=== PATIENT | female | born 1980 | race Caucasian/White ===

== ENCOUNTER 2020-05-11 15:28 | Observation (INO) | payer OTHER ==
[2020-05-11] MEDS ORDERED: IOPAMIDOL CONTRAST (ORAL USE) VIAL PO PRN (16:12)
[2020-05-11] MEDS ORDERED: PANTOPRAZOLE 40 MG/10 ML VIAL IVP STA (16:13)
--- NOTE | 2020-05-11 16:25 | ED ---
General Adult HPI - General Chief complaint: Abdominal Pain Stated complaint: vomiting Time Seen by Provider: 05/11/20 16:01 Source: patient, RN notes reviewed, old records reviewed Mode of arrival: ambulatory Limitations: no limitations - History of Present Illness Initial comments: 40-year-old female presenting for evaluation of vomiting. Patient states she's been vomiting for the past 3 weeks but much with any oral intake. She denies abdominal pain. She has previous history of gastric bypass, gastric sleeve. She denies any previous consultations with the surgery which was over a year ago. She denies fever. She states she has some reflux type symptoms secondary to the persistent vomiting. She states she has been moving her bowels although his been somewhat irregular. She was evaluated by her surgeon within the past several weeks and had an outpatient CT. She states she has an appointment for a evaluation by general surgeon Dr. Aguilar. - Related Data Home Medications Medication Instructions Recorded Confirmed Levothyroxine Sodium [Synthroid] 137 mcg PO DAILY 05/11/20 05/11/20 Lisinopril [Prinivil] 10 mg PO HS 05/11/20 05/11/20 Multivitamins, Thera [Multivitamin 1 tab PO DAILY 05/11/20 05/11/20 (formulary)] Allergies Allergy/AdvReac Type Severity Reaction Status Date / Time gentamicin AdvReac Swelling Verified 05/11/20 16:40 Review of Systems ROS Statement: Those systems with pertinent positive or pertinent negative responses have been documented in the HPI. ROS Other: All systems not noted in ROS Statement are negative. Past Medical History Past Medical History: Cancer Additional Past Medical History / Comment(s): thyroid ca History of Any Multi-Drug Resistant Organisms: None Reported Past Surgical History: Adenoidectomy, Section, Cholecystectomy, Tonsillectomy Additional Past Surgical History / Comment(s): thyroidectomy, gastric sleeve Past Psychological History: No Psychological Hx Reported Smoking Status: Never smoker Past Alcohol Use History: None Reported Past Drug Use History: None Reported General Exam Limitations: no limitations General appearance: alert, in no apparent distress Head exam: Present: atraumatic, normocephalic Eye exam: Present: normal appearance, PERRL ENT exam: Present: mucous membranes dry. Absent: normal oropharynx (Erythema) Neck exam: Present: normal inspection, tenderness Respiratory exam: Present: normal lung sounds bilaterally. Absent: respiratory distress, wheezes Cardiovascular Exam: Present: regular rate, normal rhythm GI/Abdominal exam: Present: soft. Absent: distended, tenderness, guarding, rebound Extremities exam: Present: normal inspection, normal capillary refill. Absent: pedal edema Neurological exam: Present: alert, oriented X3, CN II-XII intact. Absent: motor sensory deficit Psychiatric exam: Present: normal affect, normal mood Skin exam: Present: warm, dry, intact. Absent: cyanosis, diaphoretic Course Vital Signs 05/11/20 15:54 Temperature 97 F L Pulse Rate 81 Respiratory 18 Rate Blood Pressure 163/107 O2 Sat by Pulse 100 Oximetry Medical Decision Making - Medical Decision Making 40 yo female presenting with nausea vomiting. Status post bariatric surgery approximately a year and half ago. Patient well-appearing, abdomen is soft nontender nondistended. CT with oral contrast is obtained, negative for obstruction, no acute findings per patient has normal CBC, CMP showing h yperglycemia with no other acute findings. I did discuss case with Dr. Aguilar who will admit the patient for symptomatically control. Intractable nausea and vomiting. She's placed on IV fluids, clear liquid diet, symptomatic control. - Lab Data Result diagrams: 05/11/20 16:58 05/11/20 16:58 Lab Results 05/11/20 05/11/20 05/11/20 Range/Units 16:58 16:58 16:58 WBC 5.5 (3.8-10.6) k/uL RBC 4.44 (3.80-5.40) m/uL Hgb 13.7 (11.4-16.0) gm/dL Hct 40.4 (34.0-46.0) % MCV 91.1 (80.0-100.0) fL MCH 30.8 (25.0-35.0) pg MCHC 33.8 (31.0-37.0) g/dL RDW 12.7 (11.5-15.5) % Plt Count 220 (150-450) k/uL MPV 8.1 Neutrophils % 63 % Lymphocytes % 28 % Monocytes % 5 % Eosinophils % 3 % Basophils % 1 % Neutrophils # 3.5 (1.3-7.7) k/uL Lymphocytes # 1.5 (1.0-4.8) k/uL Monocytes # 0.3 (0-1.0) k/uL Eosinophils # 0.1 (0-0.7) k/uL Basophils # 0.1 (0-0.2) k/uL PT 10.5 (9.0-12.0) sec INR 1.0 (<1.2) APTT 23.3 (22.0-30.0) sec Sodium (137-145) mmol/L Potassium (3.5-5.1) mmol/L Chloride (98-107) mmol/L Carbon Dioxide (22-30) mmol/L Anion Gap mmol/L BUN (7-17) mg/dL Creatinine (0.52-1.04) mg/dL Est GFR (CKD-EPI)AfAm (>60 ml/min/1.73 sqM) Est GFR (CKD-EPI)NonAf (>60 ml/min/1.73 sqM) Glucose (74-99) mg/dL Plasma Lactic Acid Vahid (0.7-2.0) mmol/L Calcium (8.4-10.2) mg/dL Total Bilirubin (0.2-1.3) mg/dL AST (14-36) U/L ALT (4-34) U/L Alkaline Phosphatase (38-126) U/L Total Protein (6.3-8.2) g/dL Albumin (3.5-5.0) g/dL Amylase (30-110) U/L Lipase (23-300) U/L Urine Color Yellow Urine Appearance Clear (Clear) Urine pH 5.5 (5.0-8.0) Ur Specific Lyons 1.020 (1.001-1.035) Urine Protein Negative (Negative) Urine Glucose (UA) 2+ H (Negative) Urine Ketones Negative (Negative) Urine Blood Moderate H (Negative) Urine Nitrite Negative (Negative) Urine Bilirubin Negative (Negative) Urine Urobilinogen <2.0 (<2.0) mg/dL Ur Leukocyte Esterase Negative (Negative) Urine RBC 9 H (0-5) /hpf Urine WBC 1 (0-5) /hpf Ur Squamous Epith Cells 1 (0-4) /hpf 05/11/20 05/11/20 Range/Units 16:58 16:58 WBC (3.8-10.6) k/uL RBC (3.80-5.40) m/uL Hgb (11.4-16.0) gm/dL Hct (34.0-46.0) % MCV (80.0-100.0) fL MCH (25.0-35.0) pg MCHC (31.0-37.0) g/dL RDW (11.5-15.5) % Plt Count (150-450) k/uL MPV Neutrophils % % Lymphocytes % % Monocytes % % Eosinophils % % Basophils % % Neutrophils # (1.3-7.7) k/uL Lymphocytes # (1.0-4.8) k/uL Monocytes # (0-1.0) k/uL Eosinophils # (0-0.7) k/uL Basophils # (0-0.2) k/uL PT (9.0-12.0) sec INR (<1.2) APTT (22.0-30.0) sec Sodium 138 (137-145) mmol/L Potassium 3.9 (3.5-5.1) mmol/L Chloride 102 (98-107) mmol/L Carbon Dioxide 26 (22-30) mmol/L Anion Gap 10 mmol/L BUN 16 (7-17) mg/dL Creatinine 0.83 (0.52-1.04) mg/dL Est GFR (CKD-EPI)AfAm >90 (>60 ml/min/1.73 sqM) Est GFR (CKD-EPI)NonAf 88 (>60 ml/min/1.73 sqM) Glucose 256 H (74-99) mg/dL Plasma Lactic Acid Vahid 1.8 (0.7-2.0) mmol/L Calcium 8.9 (8.4-10.2) mg/dL Total Bilirubin 1.1 (0.2-1.3) mg/dL AST 25 (14-36) U/L ALT 21 (4-34) U/L Alkaline Phosphatase 69 (38-126) U/L Total Protein 7.3 (6.3-8.2) g/dL Albumin 4.1 (3.5-5.0) g/dL Amylase 45 (30-110) U/L Lipase 224 (23-300) U/L Urine Color Urine Appearance (Clear) Urine pH (5.0-8.0) Ur Specific Lyons (1.001-1.035) Urine Protein (Negative) Urine Glucose (UA) (Negative) Urine Ketones (Negative) Urine Blood (Negative) Urine Nitrite (Negative) Urine Bilirubin (Negative) Urine Urobilinogen (<2.0) mg/dL Ur Leukocyte Esterase (Negative) Urine RBC (0-5) /hpf Urine WBC (0-5) /hpf Ur Squamous Epith Cells (0-4) /hpf Disposition Clinical Impression: Intractable nausea and vomiting Disposition: ADMITTED IP TO THIS HOSP Condition: Stable Is patient prescribed a controlled substance at d/c from ED?: No Referrals: Nino Castillo MD [Primary Care Provider] - 1-2 days Decision to Admit Reason: Admit from EC Decision Date: 05/11/20 Decision Time: 18:44
[2020-05-11 17:15] LABS: ALT 21 U/L (4-34); AST 25 U/L (14-36); African American GFR (CKD) >90 (>60 ml/min/1.73 sqM); Albumin 4.1 g/dL (3.5-5.0); Alkaline Phosphatase 69 U/L (38-126); Amylase 45 U/L (30-110); Anion Gap 10 mmol/L; Blood Urea Nitrogen 16 mg/dL (7-17); Calcium 8.9 mg/dL (8.4-10.2); Carbon Dioxide 26 mmol/L (22-30); Chloride 102 mmol/L (98-107); Glucose 256 mg/dL (74-99); Lipase 224 U/L (23-300); Non-African American GFR(CKD) 88 (>60 ml/min/1.73 sqM); Potassium 3.9 mmol/L (3.5-5.1); Sodium 138 mmol/L (137-145); Total Bilirubin 1.1 mg/dL (0.2-1.3); Total Protein 7.3 g/dL (6.3-8.2)
[2020-05-11 17:17] LABS: Appearance,Urine Clear (Clear); Basophils # (A) 0.1 k/uL (0-0.2); Basophils % (A) 1 %; Bilirubin,Urine Negative (Negative); Blood,Urine Moderate (Negative); Color,Urine Yellow; Eosinophils # (A) 0.1 k/uL (0-0.7); Eosinophils % (A) 3 %; Glucose,Urine (UA) 2+ (Negative); HCT 40.4 % (34.0-46.0); HGB 13.7 gm/dL (11.4-16.0); Ketones,Urine Negative (Negative); Leukocyte Esterase,Urine Negative (Negative); Lymphocytes # (A) 1.5 k/uL (1.0-4.8); Lymphocytes % (A) 28 %; MCH 30.8 pg (25.0-35.0); MCHC 33.8 g/dL (31.0-37.0); MCV 91.1 fL (80.0-100.0); Mean Platelet Volume 8.1; Monocytes # (A) 0.3 k/uL (0-1.0); Monocytes % (A) 5 %; Neutrophils # (A) 3.5 k/uL (1.3-7.7); Neutrophils % (A) 63 %; Nitrite,Urine Negative (Negative); PH, Urine 5.5 (5.0-8.0); Platelet Count 220 k/uL (150-450); Protein,Urine Negative (Negative); RBC 4.44 m/uL (3.80-5.40); RBC,Urine 9 /hpf (0-5); RDW 12.7 % (11.5-15.5); Squamous Epithelial Cell,Urine 1 /hpf (0-4); Urobilinogen,Urine <2.0 mg/dL (<2.0); WBC 5.5 k/uL (3.8-10.6); WBC,Urine 1 /hpf (0-5)
[2020-05-11 17:26] LABS: Partial Thromboplastin Time 23.3 sec (22.0-30.0); Prothrombin Time 10.5 sec (9.0-12.0)
--- NOTE | 2020-05-11 17:47 | CT ---
EXAMINATION TYPE: CT abdomen pelvis w con DATE OF EXAM: 05/11/2020 COMPARISON: None available. HISTORY: Vomiting s/p gastric sleeve 04-16-20 CT DLP: 2208.3 mGycm Automated exposure control for dose reduction was used. TECHNIQUE: Helical acquisition of images was performed from the lung bases through the pelvis. CONTRAST: Performed with Oral Contrast and with IV Contrast, patient injected with 100 mL of Isovue 300. FINDINGS: LUNG BASES: No significant abnormality is appreciated. LIVER/GB: No significant abnormality is appreciated. Hepatic steatosis and cholecystectomy noted. PANCREAS: No significant abnormality is seen. SPLEEN: No significant abnormality is seen. ADRENALS: No significant abnormality is seen. KIDNEYS: No significant abnormality is seen. FREE AIR: No free air is visualized. RETROPERITONEAL ADENOPATHY: None visualized REPRODUCTIVE ORGANS: No significant abnormality is seen URINARY BLADDER: Moderate degenerative bladder wall thickening. PELVIC ADENOPATHY: None visualized. OSSEOUS STRUCTURES: No acute abnormality is seen. Moderate to severe L5-S1 spondylosis. BOWEL: Gastric sleeve is seen. No bowel obstruction, free air or fluid. No acute appendicitis. Small fat-containing periumbilical hernia. OTHER: None. IMPRESSION: NO ACUTE ABNORMALITY. GASTRIC SLEEVE. Incidental findings as above.
[2020-05-11] MEDS ORDERED: MORPHINE SULFATE 4 MG/ML SYRINGE IV PRN (18:40)
[2020-05-11] MEDS ORDERED: NALOXONE 0.4 MG/ML 1 ML VIAL IV PRN (18:40)
[2020-05-11] MEDS: SODIUM CHLORIDE 0.9% 1,000 ML IV SCH (19:34)
[2020-05-11] MEDS: ONDANSETRON 4 MG/2 ML VIAL IVP PRN (19:37)
[2020-05-12] MEDS: SODIUM CHLORIDE 0.9% 1,000 ML IV SCH ×3 (07:00→23:03)
[2020-05-12] MEDS: PANTOPRAZOLE 40 MG/10 ML VIAL IV SCH (11:14)
[2020-05-12] MEDS: ONDANSETRON 4 MG/2 ML VIAL IVP PRN (11:15)
[2020-05-12] MEDS: INSULIN ASPART (NovoLOG) 100 UNIT/ML VIAL SQ SCH ×3 (11:42→20:27)
[2020-05-12] MEDS ORDERED: PROPOFOL 10 MG/ML 20 ML VIAL IV ONE (11:43)
[2020-05-12] MEDS ORDERED: LIDOCAINE 1% INJ 10MG/ML (20 ML MDV) ONE (11:43)
[2020-05-12] MEDS ORDERED: IV FLUID CONTINUATION 1,000 ML IV ONE (11:44)
--- NOTE | 2020-05-12 12:01 | P.GSHP ---
History of Present Illness H&P Date: 05/12/20 CHIEF COMPLAINT: Intractable nausea and vomiting. HISTORY OF PRESENT ILLNESS: The patient is a 40 year old female who presents with intractable nausea and vomiting for one month. She had a sleeve gastrectomy August 2018. She is less than 2 years out. Her bariatric surgeon is in [facility]. She reports initially being 330 pounds, BMI 62.5. Today she comes in 243 pounds, BMI 46.1. She has lost 87 pounds in list in 2 years. In the past 2+ weeks, she has been a liquid diet per recommendation of her bariatric surgeon. She reports she is unable to tolerate liquids. She reports epigastric discomfort which is moderate to severe. She reports drinking liquids and vomiting within 30 minutes. She presented with worsening symptoms to the emergency room. She is admitted for intractable nausea and vomiting, dehydration, epigastric abdominal pain with history of sleeve gastrectomy. PAST MEDICAL HISTORY: See list and reviewed PAST SURGICAL HISTORY: See list and reviewed MEDICATIONS: See list and reviewed ALLERGIES: See list and reviewed SOCIAL HISTORY: See list and reviewed FAMILY HISTORY: See list and reviewed REVIEW OF ORGAN SYSTEMS: CONSTITUTIONAL: No fevers or chills. Has recent weight loss over 80 pounds intentional EYES: Denies any trouble with vision. No glasses. HEENT: No difficulties with hearing. No nosebleeds. Has difficulty swallowing. RESPIRATORY: Denies pneumonia. Denies any troubles with breathing or dyspnea on exertion. CARDIOVASCULAR: Denies any chest pain, palpitations, or recent heart attacks. GASTROINTESTINAL: Denies fatty food intolerance. Denies change in bowel habits and gas bloat. Has gastroesophageal reflux disease. GENITOURINARY: Denies any blood in urine or increased urinary frequency. NEUROLOGICAL: Denies any numbness or tingling along the distal extremities. No seizure disorders or headaches. MUSCULOSKELETAL: Denies any back pain, stiffness or joint arthritis. SKIN: No current skin cancer. No rash. PSYCHIATRIC: Denies current depression or suicidal thoughts. ENDOCRINE: History of thyroid cancer. Denies any blood sugar glucose intolerance. HEME/LYMPHATIC: Denies any lumps and bumps around the neck. No recent deep venous thrombosis. ALLERGY/IMMUNOLOGY: No immunoglobulin therapy. No immune deficiencies. BREAST: Denies current breast lumps, pain or nipple discharge. PHYSICAL EXAM: VITALS: Reviewed CONSTITUTIONAL: Well developed and in no acute distress. EYES: Conjuctivae without sclera icterus. Extraocular movements grossly intact. HEAD, EARS, NOSE, THROAT: Moist buccal mucosa. Head is atraumatic, normocephalic. Hears conversational speech. No nasal drainage. NECK: No JV distention. RESPIRATORY: Non-labored respirations and equal bilateral excursions. No gross wheezes. CARDIOVASCULAR: Regular rate and rhythm. Palpable 2+ radial pulses. ABDOMEN: Soft. Non-tender. Nondistended. LYMPH: No neck lymphadenopathy. No axillary lymphadenopathy. MUSCULOSKELETAL: Range of motion bilateral upper extremities within normal limits. Nail and fingers with good capillary refill. SKIN: Warm and well perfused with good skin turgor. Hirsutism along jaw line. NEUROLOGIC: Cranial nerves II through XII grossly intact. Sensation upper and extremities intact. No focal or lateralizing signs. PSYCH: Appropriate affect. Alert and oriented to person, place and time. Disp lays appropriate insight. CLINCAL LABS: Reviewed. WBC normal. IMAGING: Independently reviewed CT of the abdomen and pelvis reviewed by me demonstrates moderate size gastric sleeve along the base at the antrum. Moderate stool burden throughout. No signs of small bowel obstruction. Findings consistent with umbilical hernia. This is my independent interpretation. RADIOLOGY: Report reviewed of CT of the abdomen and pelvis additionally report moderate spondylosis of L5-S1 and thickening of the bladder. ASSESSMENT: 1. Intractable nausea and vomiting 2. Status post sleeve gastrectomy with complications 3. Morbid obesity due to excess calories, BMI 46.1 4. Epigastric abdominal pain PLAN: 1. Recommend upper endoscopy. Benefits and risks described. 2. Low magneisum and low thiamine may also cause intractable nausea. Will obtain and treat. 3. IV fluid hydration for intractable nausea and vomiting. Past Medical History Past Medical History: Cancer Additional Past Medical History / Comment(s): thyroid ca History of Any Multi-Drug Resistant Organisms: None Reported Past Surgical History: Adenoidectomy, Section, Cholecystectomy, Tonsillectomy Additional Past Surgical History / Comment(s): thyroidectomy, gastric sleeve [email or web address]. Past Psychological History: No Psychological Hx Reported Smoking Status: Never smoker Past Alcohol Use History: None Reported Past Drug Use History: None Reported - Past Family History Sister(s) History Unknown: Yes Additional Family Medical History / Comment(s): gastic sleeve Medications and Allergies Home Medications Medication Instructions Recorded Confirmed Type Levothyroxine Sodium [Synthroid] 137 mcg PO DAILY 05/11/20 05/11/20 History Lisinopril [Prinivil] 10 mg PO HS 05/11/20 05/11/20 History Multivitamins, Thera [Multivitamin 1 tab PO DAILY 05/11/20 05/11/20 History (formulary)] Omeprazole [PriLOSEC] 40 mg PO DAILY #14 cap 05/13/20 Rx Allergies Allergy/AdvReac Type Severity Reaction Status Date / Time gentamicin AdvReac Swelling Verified 05/11/20 16:40 Surgical - Exam Vital Signs Temp Pulse Resp BP Pulse Ox 97 F L 81 18 163/107 100 05/11/20 15:54 05/11/20 15:54 05/11/20 15:54 05/11/20 15:54 05/11/20 15:54 Results - Labs 05/11/20 16:58 05/13/20 06:14 Abnormal Lab Results - Last 24 Hours (Table) 05/11/20 05/11/20 Range/Units 16:58 16:58 Glucose 256 H (74-99) mg/dL Urine Glucose (UA) 2+ H (Negative) Urine Blood Moderate H (Negative) Urine RBC 9 H (0-5) /hpf Diabetes panel 05/11/20 Range/Units 16:58 Sodium 138 (137-145) mmol/L Potassium 3.9 (3.5-5.1) mmol/L Chloride 102 (98-107) mmol/L Carbon Dioxide 26 (22-30) mmol/L BUN 16 (7-17) mg/dL Creatinine 0.83 (0.52-1.04) mg/dL Glucose 256 H (74-99) mg/dL Calcium 8.9 (8.4-10.2) mg/dL AST 25 (14-36) U/L ALT 21 (4-34) U/L Alkaline Phosphatase 69 (38-126) U/L Total Protein 7.3 (6.3-8.2) g/dL Albumin 4.1 (3.5-5.0) g/dL Calcium panel 05/11/20 Range/Units 16:58 Calcium 8.9 (8.4-10.2) mg/dL Albumin 4.1 (3.5-5.0) g/dL Pituitary panel 05/11/20 Range/Units 16:58 Sodium 138 (137-145) mmol/L Potassium 3.9 (3.5-5.1) mmol/L Chloride 102 (98-107) mmol/L Carbon Dioxide 26 (22-30) mmol/L BUN 16 (7-17) mg/dL Creatinine 0.83 (0.52-1.04) mg/dL Glucose 256 H (74-99) mg/dL Calcium 8.9 (8.4-10.2) mg/dL Adrenal panel 05/11/20 Range/Units 16:58 Sodium 138 (137-145) mmol/L Potassium 3.9 (3.5-5.1) mmol/L Chloride 102 (98-107) mmol/L Carbon Dioxide 26 (22-30) mmol/L BUN 16 (7-17) mg/dL Creatinine 0.83 (0.52-1.04) mg/dL Glucose 256 H (74-99) mg/dL Calcium 8.9 (8.4-10.2) mg/dL Total Bilirubin 1.1 (0.2-1.3) mg/dL AST 25 (14-36) U/L ALT 21 (4-34) U/L Alkaline Phosphatase 69 (38-126) U/L Total Protein 7.3 (6.3-8.2) g/dL Albumin 4.1 (3.5-5.0) g/dL
--- NOTE | 2020-05-12 12:04 | P.PCN ---
Date of Procedure: 05/12/20 Description of Procedure: PREOPERATIVE DIAGNOSIS: Intractable nausea and vomiting Dysphagia to liquids Status post sleeve gastrectomy Gastroesophageal reflux disease Epigastric abdominal pain POSTOPERATIVE DIAGNOSIS: Hypertensive GE junction Intractable nausea and vomiting Dysphagia to liquids Status post sleeve gastrectomy Gastroesophageal reflux disease Epigastric abdominal pain OPERATION: Esophagogastroduodenoscopy SURGEON: Dayana Aguilar MD ANESTHESIA: MAC. INDICATIONS: The patient is a 40-year-old female who presents with a history of sleeve gastrectomy with abdominal pain and intractable nausea vomiting. Benefits and risks of the procedure were described. Informed consent was obtained. DESCRIPTION: The patient was brought into the endoscopy suite and laid in the left lateral decubitus position. An Olympus gastroscope was passed along the posterior oropharynx down to the distal esophagus where the squamocolumnar junction was at 32 centimeters from the incisors remarkable for chronic erosive esophagitis, LA grade A without ulceration. The stomach was entered with hypertensive GE junction identified.. The sleeve reservoir was within normal limits. Retroflexion occurred within the antrum without gastric ulcers. Chronic gastritis albeit mild was found along the antrum. The first through third portion of the duodenum was examined and unremarkable. The scope again had easily retroflexed along the antrum. The stomach was desufflated. The patient tolerated the procedure well. FINDINGS: No acute ulceration found along her sleeve. No corkscrewing sleeve gastrectomy. Squamocolumnar junction at 32 cm from the incisors. Diaphragmatic hiatus at 33 cm. Hypertensive GE junction Hypertensive pylori LA grade A erosive esophagitis. No active duodenitis. Chronic gastritis RECOMMENDATIONS: Upper endoscopy as needed. Recommend esophagram Also recommend manometry for features of hypertensive GE junction
--- NOTE | 2020-05-12 13:56 | P.PN ---
Subjective Progress Note Date: 05/12/20 CHIEF COMPLAINT: Intractable nausea and vomiting. HISTORY OF PRESENT ILLNESS: The patient is a 40 year old female who presented with intractable nausea and vomiting for one month. She has a sleeve nighat rectomy. She completed an upper endoscopy without findings of gastric or duodenal ulcers. A barium swallow was obtained for functional abnormalities of her swallow. REVIEW OF ORGAN SYSTEMS: No fevers or chills. No shortness of breath. PHYSICAL EXAM: VITALS: Reviewed CONSTITUTIONAL: Well developed and in no acute distress. EYES: Conjuctivae without sclera icterus. Extraocular movements grossly intact. HEAD, EARS, NOSE, THROAT: Moist buccal mucosa. Head is atraumatic, normocephalic. Hears conversational speech. No nasal drainage. NECK: No JV distention. RESPIRATORY: Non-labored respirations and equal bilateral excursions. No gross wheezes. CARDIOVASCULAR: Palpable 2+ radial pulses. ABDOMEN: Soft. Non-tender. Nondistended. LYMPH: No neck lymphadenopathy. No axillary lymphadenopathy. MUSCULOSKELETAL: Nail and fingers with good capillary refill. SKIN: Warm and well perfused with good skin turgor. Hirsutism along jaw line. NEUROLOGIC: Cranial nerves II through XII grossly intact. No focal or lateralizing signs. PSYCH: Appropriate affect. Alert and oriented to person, place and time. Displays appropriate insight. LABS: Magnesium less than 2.0, low IMAGING: I was present for her esophagram with the radiologist. Mild delay at pylorus noted in supine position. Sleeve empties after laying down. This is my independent interpration. ASSESSMENT: 1. Intractable nausea and vomiting 2. Status post sleeve gastrectomy with complications 3. Morbid obesity due to excess calories, BMI 46.1 4. Epigastric abdominal pain 5. Delayed gastric emptying 6. Hypomagnesia PLAN: 1. For her delayed gastric emptying, will try reglan for motility 2. Anti-emetics including decadron scheduled. 3. Bariatric full liquid diet in the interim. 4. Correction of low magnesium to serum 2.0. Objective - Vital Signs Vital signs: Vital Signs Temp 97.4 F L 05/12/20 13:31 Pulse 68 05/12/20 13:31 Resp 21 05/12/20 13:31 BP 141/90 05/12/20 13:31 Pulse Ox 100 05/12/20 13:31 Intake & Output 05/11/20 05/12/20 05/12/20 18:59 06:59 18:59 Intake Total 200 Balance 200 Weight 110.677 kg 110.677 kg Intake: IV 200 - Labs CBC & Chem 7: 05/11/20 16:58 05/13/20 06:14 Labs: Abnormal Lab Results - Last 24 Hours (Table) 05/11/20 05/11/20 Range/Units 16:58 16:58 Glucose 256 H (74-99) mg/dL Urine Glucose (UA) 2+ H (Negative) Urine Blood Moderate H (Negative) Urine RBC 9 H (0-5) /hpf Assessment and Plan (1) Body mass index [BMI] 45.0-49.9, adult Status: Acute Code(s): Z68.42 - BODY MASS INDEX [BMI] 45.0-49.9, ADULT SNOMED Code(s): 442121966 (2) Dysphagia Status: Acute Code(s): R13.10 - DYSPHAGIA, UNSPECIFIED SNOMED Code(s): 99457718 (3) Hypomagnesemia Status: Acute Code(s): E83.42 - HYPOMAGNESEMIA SNOMED Code(s): 466706214 (4) Intractable nausea and vomiting Status: Acute Code(s): R11.2 - NAUSEA WITH VOMITING, UNSPECIFIED SNOMED Code(s): 783401885 (5) Morbid obesity due to excess calories Status: Acute Code(s): E66.01 - MORBID (SEVERE) OBESITY DUE TO EXCESS CALORIES SNOMED Code(s): 783448974 (6) Status post laparoscopic sleeve gastrectomy Status: Acute Code(s): Z98.84 - BARIATRIC SURGERY STATUS SNOMED Code(s): 411291228030252
[2020-05-12] MEDS ORDERED: DEXAMETHASONE SOD PHOSPHATE 10 MG/ML 1 ML VIAL IV PRN (13:57)
--- NOTE | 2020-05-12 14:09 | FL ---
EXAMINATION TYPE: FL UGI w esophagus DATE OF EXAM: 05/12/2020 COMPARISON: None HISTORY: Dysphasia TECHNIQUE: Single view contrast technique FINDINGS: Esophagus dilates to normal caliber has normal contour to the gastroesophageal junction. Ga stroesophageal junction opens to normal caliber. Small sliding type hiatal hernia is present on real- time observation. Gastric sleeve is patent. There is some hesitancy entering the proximal duodenum. Contrast enters the duodenum and supine views. Referring surgeon was present for the procedure. IMPRESSION: 1. Small hiatal hernia. 2. No stenosis or obstruction
[2020-05-12] MEDS: DEXAMETHASONE SOD PHOSPHATE 4 MG/ML 1 ML VIAL IV SCH ×3 (14:52→23:02)
[2020-05-12] MEDS: MAGNESIUM SULFATE-D5W PMX 1 GM in DEXTROSE/WATER 1 100ML.BAG IVPB SCH ×4 (14:53→18:35)
[2020-05-12] MEDS: METOCLOPRAMIDE 5 MG/ML 2 ML VIAL IVP SCH ×2 (14:53→20:27)
[2020-05-12 20:17] LABS: Glucose,Whole Blood 259 mg/dL (75-99)
[2020-05-13] MEDS: METOCLOPRAMIDE 5 MG/ML 2 ML VIAL IVP SCH ×3 (01:20→14:57)
[2020-05-13] MEDS: DEXAMETHASONE SOD PHOSPHATE 4 MG/ML 1 ML VIAL IV SCH ×2 (05:15→12:38)
[2020-05-13 06:58] LABS: Glucose,Whole Blood 235 mg/dL (75-99)
[2020-05-13 07:32] VITALS: BP 122/78
--- NOTE | 2020-05-13 08:26 | P.PN ---
Subjective Progress Note Date: 05/13/20 CHIEF COMPLAINT: Intractable nausea and vomiting. HISTORY OF PRESENT ILLNESS: The patient is a 40 year old female who presented with intractable nausea and vomiting and is status post sleeve gastrectomy. She completed upper endoscopy and barium swallow. She reports persistent vomiting unchanged from yesterday. Dynamic esophagram reviewed demonstrating mild gastric outlet obstruction with some improvement upon laying down. Patient clinically reports no new change. She reports trouble swallowing. REVIEW OF ORGAN SYSTEMS: No fevers or chills. No shortness of breath. PHYSICAL EXAM: VITALS: Reviewed CONSTITUTIONAL: Well developed and in no acute distress. EYES: Conjuctivae without sclera icterus. Extraocular movements grossly intact. HEAD, EARS, NOSE, THROAT: Moist buccal mucosa. Head is atraumatic, normocephalic. Hears conversational speech. No nasal drainage. NECK: No JV distention. RESPIRATORY: Non-labored respirations and equal bilateral excursions. No gross wheezes. CARDIOVASCULAR: Palpable 2+ radial pulses. ABDOMEN: Soft. Non-tender. Nondistended. MUSCULOSKELETAL: Nail and fingers with good capillary refill. SKIN: Warm and well perfused with good skin turgor. Hirsutism along jaw line. NEUROLOGIC: Cranial nerves II through XII grossly intact. No focal or later alizing signs. PSYCH: Appropriate affect. Alert and oriented to person, place and time. Displays appropriate insight. LABS: Reviewed magnesium over 2.0 ASSESSMENT: 1. Intractable nausea and vomiting 2. Status post sleeve gastrectomy with complications 3. Morbid obesity due to excess calories, BMI 46.1 4. Epigastric abdominal pain 5. Delayed gastric emptying 6. Hypomagnesia 7. Dysphagia PLAN: 1. She has persistent symptoms despite conservative measures of medications, dietary adjustment and diagnostic studies. 2. Recommend upper endoscopy with dilation of the pylorus to address delayed gastric emptying from gastric outlet obstruction. Benefits and risks described with patient agreed. She is elevated risk for perioperative complications in setting of previous sleeve gastrectomy and morbid obesity. Objective - Vital Signs Vital signs: Vital Signs Temp 97.4 F L 05/13/20 07:31 Pulse 74 05/13/20 07:31 Resp 16 05/13/20 07:31 BP 122/78 05/13/20 07:31 Pulse Ox 98 05/13/20 07:31 Intake & Output 05/12/20 05/13/20 05/13/20 18:59 06:59 18:59 Intake Total 200 300 Balance 200 300 Intake: IV 200 Oral 300 Other: Voiding Method Toilet # Voids 1 - Labs CBC & Chem 7: 05/11/20 16:58 05/13/20 06:14 Labs: Abnormal Lab Results - Last 24 Hours (Table) 05/12/20 05/13/20 Range/Units 20:13 06:51 POC Glucose (mg/dL) 259 H 235 H (75-99) mg/dL Assessment and Plan (1) Body mass index [BMI] 45.0-49.9, adult Status: Acute Code(s): Z68.42 - BODY MASS INDEX [BMI] 45.0-49.9, ADULT SNOMED Code(s): 381154796 (2) Dysphagia Status: Acute Code(s): R13.10 - DYSPHAGIA, UNSPECIFIED SNOMED Code(s): 68902605 (3) Gastric outlet obstruction Status: Acute Code(s): K31.1 - ADULT HYPERTROPHIC PYLORIC STENOSIS SNOMED Code(s): 068376257 (4) Intractable nausea and vomiting Status: Acute Code(s): R11.2 - NAUSEA WITH VOMITING, UNSPECIFIED SNOMED Code(s): 132032762 (5) Morbid obesity due to excess calories Status: Acute Code(s): E66.01 - MORBID (SEVERE) OBESITY DUE TO EXCESS CALORIES SNOMED Code(s): 597538973 (6) Status post laparoscopic sleeve gastrectomy Status: Acute Code(s): Z98.84 - BARIATRIC SURGERY STATUS SNOMED Code(s): 274738153600977
[2020-05-13] MEDS: INSULIN ASPART (NovoLOG) 100 UNIT/ML VIAL SQ SCH ×2 (09:54→12:38)
[2020-05-13] MEDS: PANTOPRAZOLE 40 MG/10 ML VIAL IV SCH (09:55)
[2020-05-13 11:07] LABS: African American GFR (CKD) 105.4 (60.0-200.0); Anion Gap 11.4 mmol/L (4.00-12.00); BUN/Creat Ratio 17.5 Ratio (12.00-20.00); Carbon Dioxide 22.6 mmol/L (21.6-31.8); Magnesium 2.1 mg/dL (1.5-2.4); Non-African American GFR(CKD) 90.9 (60.0-200.0); Potassium 4.4 mmol/L (3.5-5.5)
[2020-05-13 11:51] LABS: Glucose,Whole Blood 194 mg/dL (75-99)
[2020-05-13] MEDS: SODIUM CHLORIDE 0.9% 1,000 ML IV SCH (12:19)
[2020-05-13] MEDS ORDERED: PROPOFOL 10 MG/ML 20 ML VIAL IV ONE (12:59)
[2020-05-13] MEDS ORDERED: LIDOCAINE 1% INJ 10MG/ML (20 ML MDV) ONE (12:59)
[2020-05-13] MEDS ORDERED: IV FLUID CONTINUATION 1,000 ML IV ONE ×2 (13:00)
--- NOTE | 2020-05-13 13:20 | P.PCN ---
Date of Procedure: 05/13/20 Description of Procedure: PREOPERATIVE DIAGNOSIS: Dysphagia. Intractable nausea and vomiting Gastric outlet obstruction Gastroesophageal reflux disease. s/p sleeve gastrectomy Esophageal dysmotility POSTOPERATIVE DIAGNOSIS: Dysphagia. Intractable nausea and vomiting Gastric outlet obstruction Gastroesophageal reflux disease. s/p sleeve gastrectomy Esophageal dysmotility OPERATION: Esophagogastroduodenoscopy with rigid dilation over guidewire using 57-[place] Esophagogastroduodenoscopy with balloon dilation pylorus, 18 mm SURGEON: Dayana Aguilar MD ANESTHESIA: MAC. INDICATIONS: The patient is a 40-year-old female who presents with a history of dysphagia, sleeve gastrectomy including gastroesophageal reflux disease. She completed an upper endoscopy with delayed emptying through the pylorus. She continued to have intractable nausea and vomiting despite conservative measures. Upper endos copy with therapeutic dilation was described. Benefits and risks of the procedure were described. Informed consent was obtained. DESCRIPTION: The patient was brought into the endoscopy suite and laid in the left lateral decubitus position. After a timeout was confirmed, the procedure was initiated. An Olympus gastroscope was passed along the posterior oropharynx down to the distal esophagus where the squamocolumnar junction was unremarkable. Hypertensive lower esophageal sphincter was identified upon passing the scope. A sliding hiatal hernia, 2 cm was identified. The gastric pouch was entered. The scope was removed as a guidewire was placed. A guidewire followed by a 57- [place] rigid dilator was placed for 2 minutes. Dilators were removed with guidewire. The upper scope was reinserted. Next, a [employer] pyloric balloon dilator 18 mm was passed through the scope. Attention was brought to the high lower tract was dilated to 18 mm for 2 minutes. The scope had easily passed without resistance following her dilation. The mucosa was intact. No full-thickness injury was encountered. The GI tract was desufflated. The patient tolerated the procedure well. FINDINGS: Hypertensive lower esophageal sphincter dilated with rigid dilator, 57-[place] Pylorus dilated to 18 mm Sliding hiatal hernia, 2 cm Resolution of hypertensive esophagus and sphincter following dilation RECOMMENDATIONS: Recommend esophageal manometry. Upper endoscopy as needed
--- NOTE | 2020-05-13 14:25 | P.DS ---
Providers Date of admission: 05/11/20 18:41 Expected date of discharge: 05/13/20 Attending physician: Dayana Aguilar Primary care physician: Nino Castillo - Discharge Diagnosis(es) (1) Gastric outlet obstruction Status: Acute (2) Status post laparoscopic sleeve gastrectomy Status: Acute (3) Esophageal dysmotility Status: Acute (4) Dysphagia Status: Acute (5) Morbid obesity due to excess calories Status: Acute (6) Body mass index [BMI] 45.0-49.9, adult Status: Acute (7) Glucose intolerance Status: Acute (8) Hypomagnesemia Status: Acute (9) Intractable nausea and vomiting Status: Acute Hospital Course: The patient is a 40-year-old female who presented with intractable nausea and vomiting for over 1 month despite being a liquid. She has history of a sleeve gastrectomy. She had been seen by her bariatric surgeon, with persistent sym ptoms. She presented to this hospital for severity of symptoms including intractable nausea and vomiting and dysphagia. Initial upper endoscopy was performed with conservative management for delayed gastric emptying. Upper endoscopy was performed. Esophagram was performed. Despite conservative measures including medications, her symptoms continued to progress. A repeat upper endoscopy with the new esophageal dilation and new duodenal dilation was performed. Symptoms had improved following her procedure. Patient was tolerating liquids with symptoms improved prior to discharge Patient Condition at Discharge: Stable Plan - Discharge Summary Discharge Rx Participant: Yes New Discharge Prescriptions: New Omeprazole [PriLOSEC] 40 mg PO DAILY #14 cap Continue Lisinopril [Prinivil] 10 mg PO HS Levothyroxine Sodium [Synthroid] 137 mcg PO DAILY Multivitamins, Thera [Multivitamin (formulary)] 1 tab PO DAILY Discharge Medication List Levothyroxine Sodium [Synthroid] 137 mcg PO DAILY 05/11/20 [History] Lisinopril [Prinivil] 10 mg PO HS 05/11/20 [History] Multivitamins, Thera [Multivitamin (formulary)] 1 tab PO DAILY 05/11/20 [History] Omeprazole [PriLOSEC] 40 mg PO DAILY #14 cap 05/13/20 [Rx] Follow up Appointment(s)/Referral(s): Nino Castillo MD [Primary Care Provider] - 05/13/20 11:30 am (Appointment with Rosanna Vargas NP) Dayana Aguilar MD [STAFF PHYSICIAN] - 1 Week Patient Instructions/Handouts: Acute Nausea and Vomiting (DC), Upper Endoscopy (DC), Esophageal Dilation (GEN) Activity/Diet/Wound Care/Special Instructions: Recommend omeprazole, Protonix, Prilosec 40 mg daily. May advance diet. Recommend warm beverages to avoid esophageal spasms. Follow-up in the bariatric center Discharge Disposition: HOME SELF-CARE
[2020-05-13 15:23] VITALS: PULSE 73; RESP 17; TEMP 97
== END 2020-05-13 16:35 | disposition home or self-care (01) ==
LOC: EC 15:28 → 6NMEDSUR 18:41 → 4SSUR 05-12 06:35
PROVIDERS: ADMIT Surgery Plastic and Reconstructive Surgery; ATTEND Surgery Plastic and Reconstructive Surgery
DX: K31.1 Adult hypertrophic pyloric stenosis (principal); K22.4 Dyskinesia of esophagus; K22.10 Ulcer of esophagus without bleeding; K30 Functional dyspepsia; K29.50 Unspecified chronic gastritis without bleeding; E83.42 Hypomagnesemia; K44.9 Diaphragmatic hernia without obstruction or gangrene; E74.39 Other disorders of intestinal carbohydrate absorption; E86.0 Dehydration; E89.0 Postprocedural hypothyroidism; K21.9 Gastro-esophageal reflux disease without esophagitis; E66.01 Morbid (severe) obesity due to excess calories; Z68.44 Body mass index [BMI] 60.0-69.9, adult; Z98.84 Bariatric surgery status; Z79.890 Hormone replacement therapy; Z79.899 Other long term (current) drug therapy; Z88.1 Allergy status to other antibiotic agents; Z85.850 Personal history of malignant neoplasm of thyroid; Z90.49 Acquired absence of other specified parts of digestive tract; Z20.822 Contact with and (suspected) exposure to COVID-19
CPT/HCPCS: 96361 ×2; 96374; 96375; 99285; 36415; 88305; 84425; 80053; 80048; 82150; 83605; 83690; 83735 ×2; 85025; 85610; 85730; 81001; 81025; 83036; 87635; 74240; 74177; 43235; 43245; 43249; G0378 ×4; J1100 ×2; J2765 ×2; J2405 ×2; J2001 ×2; J3475; J2704 ×2; C9113 ×3; Q9967; C1727

== ENCOUNTER → 2020-05-18 | Outpatient (CLI) | payer OTHER ==
[2020-05-18 14:16] VITALS: BP 158/91; PULSE 75; RESP 18; TEMP 98.2; BMI 42.8
--- NOTE | 2020-05-18 14:37 | P.PN ---
Subjective Progress Note Date: 05/18/20 DATE: 05/18/2020 CHIEF COMPLAINT: Status post sleeve gastrectomy HISTORY OF PRESENT ILLNESS: The patient is a 40 year old female status post sleeve gastrectomy August 2018. She is less than 2 years out. She had her procedure in [facility]. She reports over 1 month history of intractable nausea and vomiting. She had multiple swallow studies and had been unable to keep liquids down despite being on a liquid diet. She is feeling better after her rigid dilation. Separately, she has been off her thyroid medication. She reports moderate to severe fatigue. She presents with new pro blems of increased weight gain and management of her morbid obesity. For her height of 5 foot 3 inches, her ideal body weight is 140 pounds. Her highest weight is 330 pounds, BMI 58.6. Today she comes in 241 pounds from 243 pounds, 1 week ago. She has lost 89 pounds lifetime. Lifetime percent excess weight loss of 47%. PAST MEDICAL HISTORY: 1. Morbid obesity due to excess calories 2. Body mass index 62.1, initial 3. Hypothyroidism 4. Hypertensive heart disease 5. Postop nausea and vomiting PAST SURGICAL HISTORY: 1. Status post sleeve gastrectomy 2. EGD with dilation 3. Adenoidectomy 4. section 5. Cholecystectomy 6. Tonsillectomy 7. Bilateral knee replacement 8. Thyroidectomy MEDICATIONS: Home Medications Medication Instructions Recorded Confirmed Levothyroxine Sodium [Synthroid] 137 mcg PO DAILY 05/11/20 05/18/20 Lisinopril [Prinivil] 10 mg PO HS 05/11/20 05/18/20 Multivitamins, Thera [Multivitamin 1 tab PO DAILY 05/11/20 05/18/20 (formulary)] Previous Rx's Medication Instructions Recorded Omeprazole [PriLOSEC] 40 mg PO DAILY #14 cap 05/13/20 ALLERGIES: Allergies Allergy/AdvReac Type Severity Reaction Status Date / Time gentamicin AdvReac Swelling Verified 05/18/20 14:16 SOCIAL HISTORY: Nonsmoker FAMILY HISTORY: Morbid obesity REVIEW OF ORGAN SYSTEMS: CONSTITUTIONAL: No fevers or chills. Has recent weight loss over 80 pounds intentional EYES: Denies any trouble with vision. No glasses. HEENT: No difficulties with hearing. No nosebleeds. Has difficulty swallowing. RESPIRATORY: Denies pneumonia. Denies any troubles with breathing or dyspnea on exertion. CARDIOVASCULAR: Denies any chest pain, palpitations, or recent heart attacks. GASTROINTESTINAL: Denies change in bowel habits and gas bloat. Has gastroesophageal reflux disease. GENITOURINARY: Denies any blood in urine or increased urinary frequency. NEUROLOGICAL: Denies any numbness or tingling along the distal extremities. No seizure disorders or headaches. MUSCULOSKELETAL: Has back pain, stiffness or joint arthritis. SKIN: No current skin cancer. No rash. PSYCHIATRIC: Denies current depression or suicidal thoughts. ENDOCRINE: History of thyroid cancer. Denies any blood sugar glucose intolerance. HEME/LYMPHATIC: Denies any lumps and bumps around the neck. No recent deep venous thrombosis. ALLERGY/IMMUNOLOGY: No immunoglobulin therapy. No immune deficiencies. BREAST: Denies current breast lumps, pain or nipple discharge. PHYSICAL EXAM: VITALS: Reviewed Vital Signs Temp 98.2 F 05/18/20 14:07 Pulse 75 05/18/20 14:07 Resp 18 05/18/20 14:07 BP 158/91 05/18/20 14:07 Pulse Ox CONSTITUTIONAL: Well developed and in no acute distress. EYES: Conjuctivae without sclera icterus. Extraocular movements grossly intact. HEAD, EARS, NOSE, THROAT: Moist buccal mucosa. Head is atraumatic, normocephalic. Hears conversational speech. No nasal drainage. NECK: No JV distention. RESPIRATORY: Non-labored respirations and equal bilateral excursions. No gross wheezes. CARDIOVASCULAR: Regular rate and rhythm. Palpable 2+ radial pulses. ABDOMEN: Soft. Non-tender. Nondistended. LYMPH: No neck lymphadenopathy. MUSCULOSKELETAL: Nail and fingers with good capillary refill. SKIN: Warm and well perfused with good skin turgor. Hirsutism along jaw line. NEUROLOGIC: Cranial nerves II through XII grossly intact. Sensation upper and extremities intact. No focal or lateralizing signs. PSYCH: Appropriate affect. Alert and oriented to person, place and time. Displays appropriate insight. CLINCAL LABS: Reviewed. Hgb A1c elevated 7.0 from 5.0% 1 year ago from outside institution ASSESSMENT: 1. Morbid obesity due to excess calories 2. Body mass index 58.6 to 42.9 3. Hypothyroidism 4. Hypertensive heart disease 5. Postop nausea and vomiting 6. Status post gastric bypass PLAN: 1. She is feeling better after dilation. 2. Recommend repeat bariatric labs 3. Recommend repeat upper endoscopy for dysphagia Objective - Vital Signs Vital signs: Vital Signs Temp 98.2 F 05/18/20 14:07 Pulse 75 05/18/20 14:07 Resp 18 05/18/20 14:07 BP 158/91 05/18/20 14:07 Pulse Ox Intake & Output 05/17/20 05/18/20 05/18/20 18:59 06:59 18:59 Weight 109.769 kg - Labs CBC & Chem 7: 05/18/20 14:55 05/18/20 14:55
[2020-05-18 15:27] LABS: HCT 43.4 % (34.0-46.0); HGB 14.5 gm/dL (11.4-16.0); MCH 31.4 pg (25.0-35.0); MCHC 33.4 g/dL (31.0-37.0); MCV 94.1 fL (80.0-100.0); Mean Platelet Volume 8.1; Platelet Count 274 k/uL (150-450); RBC 4.61 m/uL (3.80-5.40); RDW 13.1 % (11.5-15.5); WBC 5.3 k/uL (3.8-10.6)
[2020-05-19 00:41] LABS: INR 0.99 (0.90-1.11); Partial Thromboplastin Time 28.2 sec (23.5-31.0); Prothrombin Time 10.8 sec (9.9-11.9)
[2020-05-19 00:45] LABS: % Iron Saturation 16.62 (12.00-45.00); African American GFR (CKD) 91.4 (60.0-200.0); Albumin 4.5 g/dL (3.80-4.90); Albumin/Globulin Ratio 1.88 (1.60-3.17); Anion Gap 7.9 mmol/L (4.00-12.00); BUN/Creat Ratio 11.11 Ratio (12.00-20.00); Calcium 8.2 mg/dL (8.7-10.3); Carbon Dioxide 28.1 mmol/L (21.6-31.8); Chol/HDL Ratio 4.63; Globulin 2.4 g/dL (1.6-3.3); LDL Cholesterol,Calculated 136.6 mg/dL (0.0-131.0); Non-African American GFR(CKD) 78.9 (60.0-200.0); Phosphorus 3.9 mg/dL (2.4-5.1); Potassium 4.5 mmol/L (3.5-5.5); Total Bilirubin 1.2 mg/dL (0.3-1.2); Total Protein 6.9 g/dL (6.2-8.2); VLDL Calculation 37.4 mg/dL (5.00-40.00)
[2020-05-19 00:57] LABS: Ferritin 16.3 ng/mL (10.0-291.0); Folate, Serum 23.4 ng/mL
[2020-05-19 01:00] LABS: Hemoglobin A1C 6.8 % (4.0-6.0)
[2020-05-19 10:14] LABS: Zinc, Serum 88 ug/dL (60-130)
[2020-05-20 07:06] LABS: Vitamin A 36 ug/dL (38-106)
[2020-05-20 13:47] LABS: Vit B1(Thiamine) 86 ug/L (38-122)
[2020-05-22 18:04] LABS: Selenium 119 mcg/L (63-160)
== END | disposition home or self-care (01) ==
LOC: BARWHC3 13:28
PROVIDERS: ATTEND Surgery Plastic and Reconstructive Surgery
DX: Z48.815 Encounter for surgical aftercare following surgery on the digestive system (principal); E66.01 Morbid (severe) obesity due to excess calories; E03.9 Hypothyroidism, unspecified; I11.9 Hypertensive heart disease without heart failure; T81.9XXA Unspecified complication of procedure, initial encounter; Z68.44 Body mass index [BMI] 60.0-69.9, adult; Z98.84 Bariatric surgery status; Z90.49 Acquired absence of other specified parts of digestive tract; Z79.899 Other long term (current) drug therapy; Z91.048 Other nonmedicinal substance allergy status
CPT/HCPCS: 80053; 80061; 82306; 82525; 82607; 82728; 82746; 83036; 83540; 83550; 83735; 83970; 84100; 84134; 84255; 84425; 84443; 84590; 84630; 85027; 85610; 85730; 99211

== ENCOUNTER 2020-06-06 06:57 | Day surgery (SDC) | payer OTHER ==
[2020-06-01 10:50] VITALS: BMI 45.3
[~2020-06-06 06:57] MED LIST: LACTATED RINGERS 1,000 ML IV SCH; LIDOCAINE 1% (10MG/ML) FOR IV START INTRADERMA PRN
[2020-06-06 07:30] VITALS: RESP 18; TEMP 97.8
[2020-06-06 07:37] LABS: Glucose,Whole Blood 134 mg/dL (75-99)
[2020-06-06] MEDS ORDERED: LACTATED RINGERS 1,000 ML IV ONE (07:43)
[2020-06-06] MEDS ORDERED: LIDOCAINE 1% INJ 10MG/ML (20 ML MDV) ONE (07:50)
[2020-06-06] MEDS ORDERED: PROPOFOL 10 MG/ML 20 ML VIAL IV ONE (07:50)
--- NOTE | 2020-06-06 07:57 | P.GSHP ---
History of Present Illness H&P Date: 06/06/20 CHIEF COMPLAINT: Dysphagia with history of duodenal and esophageal stricture HISTORY OF PRESENT ILLNESS: The patient is a 40-year-old female who presents reports dysphagia including substernal epigastric abdominal pain. She has history of dysphagia with duodenal and esophageal stricture Upper endoscopy was offered for further evaluation and management. PAST MEDICAL HISTORY: Please see list. PAST SURGICAL HISTORY: Please see list. MEDICATIONS: Please see list. ALLERGIES: Please see list. SOCIAL HISTORY: No illicit drug use FAMILY HISTORY: No reports of Crohn disease or ulcerative colitis. REVIEW OF ORGAN SYSTEMS: CONSTITUTIONAL: No reports of fevers or chills. GI: Denies any blood in stools or constipation. PHYSICAL EXAM: VITAL SIGNS: Stable GENERAL: Well-developed and pleasant in no acute distress. HEENT: No scleral icterus. Extraocular movements grossly intact. Moist buccal mucosa. NECK: Supple without lymphadenopathy. CHEST: Unlabored respirations. Equal bilateral excursions. CARDIOVASCULAR: Regular rate and rhythm. Distal 2+ pulses. ABDOMEN: Soft, nondistended. MUSCULOSKELETAL: No clubbing, cyanosis, or edema. ASSESSMENT: 1. Duodenal with esophageal stricture PLAN: 1. Recommend proceeding with an upper endoscopy with rigid dilators. Past Medical History Past Medical History: Cancer, Diabetes Mellitus, Hypertension Additional Past Medical History / Comment(s): thyroid ca; takes diabetes medications as needed. nausea/vomiting History of Any Multi-Drug Resistant Organisms: None Reported Past Surgical History: Adenoidectomy, Bariatric Surgery, Section, Cholecystectomy, Orthopedic Surgery, Tonsillectomy Additional Past Surgical History / Comment(s): thyroidectomy, gastric sleeve [email or web address]. bilat knee surgery . Past Anesthesia/Blood Transfusion Reactions: Postoperative Nausea & Vomiting (PONV) Smoking Status: Never smoker - Past Family History Sister(s) History Unknown: Yes Additional Family Medical History / Comment(s): gastic sleeve Medications and Allergies Home Medications Medication Instructions Recorded Confirmed Type Levothyroxine Sodium [Synthroid] 137 mcg PO DAILY 05/11/20 06/01/20 History Lisinopril [Prinivil] 10 mg PO HS 05/11/20 06/01/20 History Multivitamins, Thera [Multivitamin 1 tab PO DAILY 05/11/20 06/01/20 History (formulary)] Omeprazole [PriLOSEC] 40 mg PO DAILY #14 cap 05/13/20 06/01/20 Rx Ergocalciferol [Vitamin D2 (1250 50,000 unit PO WEEKLY 06/02/20 06/02/20 History Mcg = 35108 Iu)] Vitamin A 10,000 unit PO DAILY 06/02/20 06/02/20 History Allergies Allergy/AdvReac Type Severity Reaction Status Date / Time gentamicin AdvReac Swelling Verified 06/01/20 10:45 Surgical - Exam Vital Signs Temp Pulse Resp BP Pulse Ox 97.8 F 75 18 134/78 100 06/06/20 07:29 06/06/20 07:29 06/06/20 07:29 06/06/20 07:29 06/06/20 07:29 Results - Labs Abnormal Lab Results - Last 24 Hours (Table) 06/06/20 Range/Units 07:35 POC Glucose (mg/dL) 134 H (75-99) mg/dL
--- NOTE | 2020-06-06 08:17 | P.PCN ---
Date of Procedure: 06/06/20 Description of Procedure: PREOPERATIVE DIAGNOSIS: Dysphagia. Intractable nausea and vomiting Duodenal stenosis Esophageal stenosis Gastroesophageal reflux disease. s/p sleeve gastrectomy Esophageal dysmotility POSTOPERATIVE DIAGNOSIS: Dysphagia. Intractable nausea and vomiting Duodenal stenosis Esophageal stenosis Gastroesophageal reflux disease. s/p sleeve gastrectomy Esophageal dysmotility OPERATION: Esophagogastroduodenoscopy with rigid dilation over guidewire using 60-[place] Esophagogastroduodenoscopy with balloon dilation pylorus, 18 mm SURGEON: Dayana Aguilar MD ANESTHESIA: MAC. INDICATIONS: The patient is a 40-year-old female who presents with a history of dysphagia, sleeve gastrectomy, duodenal including esophageal stenosis. Upper endoscopy with therapeutic dilation was described. Benefits and risks of the procedure were described. Informed consent was obtained. DESCRIPTION: The patient was brought into the endoscopy suite and laid in the left lateral decubitus position. After a timeout was confirmed, the procedure was initiated. An Olympus gastroscope was passed along the posterior oropharynx down to the distal esophagus where the squamocolumnar junction was unremarkable. The gastric pouch was entered. The scope was removed as a guidewire was placed. A guidewire followed by a 60- [place] rigid dilator was placed for 2 minutes. Dilators were removed with guidewire. The upper scope was reinserted. Next, a [employer] pyloric balloon dilator 18 mm was passed through the scope. Attention was brought to pylorus was dilated to 18 mm. The scope had easily passed without resistance following her dilation. The mucosa was intact. No full-thickness injury was encountered. The GI tract was desufflated. The patient tolerated the procedure well. FINDINGS: Hypertensive lower esophageal sphincter dilated with rigid dilator, 60-[place] Pylorus dilated to 18 mm RECOMMENDATIONS: Upper endoscopy as needed Plan - Discharge Summary Discharge Rx Participant: No New Discharge Prescriptions: Continue RX: Levothyroxine Sodium [Synthroid] 137 mcg PO DAILY RX: Multivitamins, Thera [Multivitamin (formulary)] 1 tab PO DAILY RX: Ergocalciferol [Vitamin D2 (1250 Mcg = 36317 Iu)] 50,000 unit PO WEEKLY RX: Vitamin A 10,000 unit PO DAILY Discontinued RX: Lisinopril [Prinivil] 10 mg PO HS RX: Omeprazole [PriLOSEC] 40 mg PO DAILY #14 cap Discharge Medication List RX: Levothyroxine Sodium [Synthroid] 137 mcg PO DAILY 05/11/20 [History] RX: Multivitamins, Thera [Multivitamin (formulary)] 1 tab PO DAILY 05/11/20 [History] RX: Ergocalciferol [Vitamin D2 (1250 Mcg = 17101 Iu)] 50,000 unit PO WEEKLY 06/02/20 [History] RX: Vitamin A 10,000 unit PO DAILY 06/02/20 [History] Follow [place] [facility] [facility] [place] - [place]20 Discharge Disposition: HOME SELF-CARE
[2020-06-06 08:34] VITALS: BP 126/86; PULSE 70
== END 2020-06-06 08:54 | disposition home or self-care (01) ==
LOC: ORWHC2ENDO 06:57
PROVIDERS: ATTEND Surgery Plastic and Reconstructive Surgery
DX: K22.2 Esophageal obstruction (principal); K21.9 Gastro-esophageal reflux disease without esophagitis; E11.9 Type 2 diabetes mellitus without complications; I10 Essential (primary) hypertension; Z79.890 Hormone replacement therapy; Z79.899 Other long term (current) drug therapy; Z85.850 Personal history of malignant neoplasm of thyroid; Z88.1 Allergy status to other antibiotic agents; Z98.84 Bariatric surgery status
CPT/HCPCS: 43245; 43248; 81025; J2001; J2704; C1727; 43249

== ENCOUNTER → 2020-06-08 | Outpatient (CLI) | payer OTHER ==
[2020-06-08 14:25] VITALS: BP 164/100; PULSE 92; RESP 18; TEMP 97.8; BMI 43.7
--- NOTE | 2020-06-08 15:03 | P.PN ---
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 She is less than 2 years out. She had her procedure in [facility]. She reports over 1-2 month history of intractable nausea and vomiting. Initially she was doing well for almost 1 month. She returns with uncontrolled intractable and vomiting. She is drinking through straws and states, "I wasn't told not to drink through a straw since my surgery." She reports intolerance to textured foods. She cannot keep anything down. She had an upper endoscopy and reports no improvement of her symptoms. She presents for surgical intervention. For her height of 5 foot 3 inches, her ideal body weight is 140 pounds. Her highest weight is 330 pounds, BMI 58.6. Today she comes in 246 pounds from 241 pounds, 1 month ago. She has gained 5 pounds, 1 month. She has lost 84 pounds lifetime. Lifetime percent excess weight loss of 44%. PAST MEDICAL HISTORY: 1. Morbid obesity due to excess calories 2. Body mass index 62.1, initial 3. Hypothyroidism 4. Hypertensive heart disease 5. Postop nausea and vomiting PAST SURGICAL HISTORY: 1. Status post sleeve gastrectomy 2. EGD with dilation 3. Adenoidectomy 4. section 5. Cholecystectomy 6. Tonsillectomy 7. Bilateral knee replacement 8. Thyroidectomy MEDICATIONS: Home Medications Medication Instructions Recorded Confirmed Levothyroxine Sodium [Synthroid] 137 mcg PO DAILY 05/11/20 05/18/20 Lisinopril [Prinivil] 10 mg PO HS 05/11/20 05/18/20 Multivitamins, Thera [Multivitamin 1 tab PO DAILY 05/11/20 05/18/20 (formulary)] Previous Rx's Medication Instructions Recorded Omeprazole [PriLOSEC] 40 mg PO DAILY #14 cap 05/13/20 ALLERGIES: Allergies Allergy/AdvReac Type Severity Reaction Status Date / Time gentamicin AdvReac Swelling Verified 05/18/20 14:16 SOCIAL HISTORY: Nonsmoker FAMILY HISTORY: Morbid obesity REVIEW OF ORGAN SYSTEMS: CONSTITUTIONAL: No fevers or chills. For her height of 5 foot 3 inches, her ideal body weight is 140 pounds. Her highest weight is 330 pounds, BMI 58.6. EYES: Denies any trouble with vision. No glasses. HEENT: No difficulties with hearing. No nosebleeds. Has difficulty swallowing. RESPIRATORY: Denies pneumonia. Denies any troubles with breathing or dyspnea on exertion. CARDIOVASCULAR: Denies any chest pain, palpitations, or recent heart attacks. GASTROINTESTINAL: Denies change in bowel habits and gas bloat. Has gastroesophageal reflux disease. GENITOURINARY: Denies any blood in urine or increased urinary frequency. NEUROLOGICAL: Denies any numbness or tingling along the distal extremities. No seizure disorders or headaches. MUSCULOSKELETAL: Has back pain, stiffness or joint arthritis. SKIN: No current skin cancer. No rash. PSYCHIATRIC: Denies current depression or suicidal thoughts. ENDOCRINE: History of thyroid cancer. Denies any blood sugar glucose intolerance. HEME/LYMPHATIC: Denies any lumps and bumps around the neck. No recent deep venous thrombosis. ALLERGY/IMMUNOLOGY: No immunoglobulin therapy. No immune deficiencies. BREAST: Denies current breast lumps, pain or nipple discharge. PHYSICAL EXAM: VITALS: Vital Signs Temp 97.8 F 06/08/20 14:21 Pulse 92 06/08/20 14:21 Resp 18 06/08/20 14:21 BP 164/100 06/08/20 14:21 Pulse Ox CONSTITUTIONAL: Well developed and in no acute distress. EYES: Conjuctivae without sclera icterus. Extraocular movements grossly intact. HEAD, EARS, NOSE, THROAT: Moist buccal mucosa. Head is atraumatic, normocephalic. Hears conversational speech. No nasal drainage. NECK: No JV distention. RESPIRATORY: Non-labored respirations and equal bilateral excursions. No gross wheezes. CARDIOVASCULAR: Regular rate and rhythm. Palpable 2+ radial pulses. ABDOMEN: Soft. Non-tender. Nondistended. LYMPH: No neck lymphadenopathy. MUSCULOSKELETAL: Nail and fingers with good capillary refill. SKIN: Warm and well perfused with good skin turgor. Hirsutism along jaw line. NEUROLOGIC: Cranial nerves II through XII grossly intact. Sensation upper and extremities intact. No focal or lateralizing signs. PSYCH: Appropriate affect. Alert and oriented to person, place and time. Displays appropriate insight. CLINCAL LABS: Reviewed. Hgb A1c elevated 6.8%. Cholesterol is elevated 222. Vitamin A is low. Vitamin D is low. Hgb 14.5 EGD FINDINGS: Hypertensive lower esophageal sphincter dilated with rigid dilator, 60-Yi rigid dilator Pylorus dilated to 18 mm with balloon ASSESSMENT: 1. Complications from sleeve gastrectomy. 2. Dysphagia 3. Intractable nausea and vomiting 4. Morbid obesity due to excess calories 5. Diabetes type II, non-insulin dependent 6. Hypercholesterolemia 7. Vitamin A deficiency PLAN: 1. She comes in with uncontrolled intractable nausea and vomiting. 2. Recommend warm beverage with no straws. 3. On prior barium swallows, she has delayed emptying from her pylorus with resultant nausea and vomiting. Conversion to gastric bypass may likely resolve her problems including delayed gastric emptying 4. She is high risk for complications for gastric leak, strictures, recurrent dysphagia, and bowel obstruction. 5. Recommend IV hydration. 6. Patient also advised for second opinion regarding her on-going clinical presentation of intractable nausea and vomiting. 7. Patient demonstrated understanding or risks and is willing to proceed. 8. Vitamin A supplement 10,000 units daily. Objective - Vital Signs Vital signs: Vital Signs Temp 97.8 F 06/08/20 14:21 Pulse 92 06/08/20 14:21 Resp 18 06/08/20 14:21 BP 164/100 06/08/20 14:21 Pulse Ox Intake & Output 06/07/20 06/08/20 06/08/20 18:59 06:59 18:59 Weight 112.037 kg
--- NOTE | 2020-06-30 11:35 | P.PN ---
Progress Note - Text Progress Note Date: 06/30/20 Patient contacted via telephone regarding her intractable nausea and vomiting with sleeve gastrectomy. Patient reports chronic emesis despite drinking liquids. Her symptoms has been ongoing for over 3-4 months. Patient encouraged to see GI doctors in the interim for additional suggestions and management of her intractable nausea and vomiting with sleeve. Additionally, second opinion advised as she has unique case of intractable nausea and vomiting despite multiple diagnostic studies without clear obstruction. Patient advised that theoretically gastric bypass may relieve her symptoms but second opinion is advised. Patient was understanding of the treatment plan and has appointment w the [facility] theoretical physicist including bariatric surgeon for second opinion.
== END | disposition home or self-care (01) ==
LOC: BARWHC3 14:13
PROVIDERS: ATTEND Surgery Plastic and Reconstructive Surgery
DX: K95.89 Other complications of other bariatric procedure (principal); R13.10 Dysphagia, unspecified; R11.2 Nausea with vomiting, unspecified; E66.01 Morbid (severe) obesity due to excess calories; E11.9 Type 2 diabetes mellitus without complications; E78.00 Pure hypercholesterolemia, unspecified; E50.9 Vitamin A deficiency, unspecified; E03.9 Hypothyroidism, unspecified; I11.9 Hypertensive heart disease without heart failure; Z68.41 Body mass index [BMI] 40.0-44.9, adult; Z79.890 Hormone replacement therapy; Z79.899 Other long term (current) drug therapy
CPT/HCPCS: 99211